=== PATIENT | female | born 1970 | race Caucasian/White ===

== ENCOUNTER 2019-03-12 17:32 | Emergency (ER) | payer OTHER ==
[2019-03-12 17:38] VITALS: RESP 18; TEMP 98.2
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
[2019-03-12 19:05] LABS: Amphetamine Screen,Urine Not Detected (NotDetected); Barbiturate Screen,Urine Not Detected (NotDetected); Benzodiazepines Screen,Urine Not Detected (NotDetected); Cocaine Screen,Urine Not Detected (NotDetected); Methadone Screen, Urine Not Detected (NotDetected); Opiate Screen,Urine Not Detected (NotDetected); Oxycodone Screen, Urine Not Detected (NotDetected); Phencyclidine Screen,Urine Not Detected (NotDetected); Tricyclic Antidepressant,Urine Not Detected (NotDetected); Urn Cannabinoid Scrn Detected (NotDetected)
[2019-03-12 19:52] VITALS: BP 169/71; PULSE 71
== END 2019-03-12 19:59 | disposition home or self-care (01) ==
LOC: EC 17:32
DX: R45.1 Restlessness and agitation (principal); S40.022A Contusion of left upper arm, initial encounter; S80.12XA Contusion of left lower leg, initial encounter; F17.200 Nicotine dependence, unspecified, uncomplicated; Y08.89XA Assault by other specified means, initial encounter
CPT/HCPCS: 80306; 82075; 99284

== ENCOUNTER → 2019-08-22 | Outpatient (CLI) | payer OTHER ==
--- NOTE | 2019-08-22 13:31 | XR ---
Cervical spine HISTORY: Cervical pain 8 views of the cervical spine There is multilevel spondylosis. Loss of normal cervical lordosis could be due to muscle spasm or pat ient positioning. Cervical vertebral bodies show preserved height and bone mineralization. Spondylosi s is present at C5-6 and C6-7, loss of disc height present C6-7, C7-T1. Facet arthropathy changes are present. No evident listhesis on flexion and extension views. No significant foraminal encroachment on oblique views. IMPRESSION: Degenerative disc disease, facet arthropathy.
== END | disposition home or self-care (01) ==
LOC: RADXRMAIN 09:36
PROVIDERS: ATTEND Family Medicine
DX: M50.30 Other cervical disc degeneration, unspecified cervical region (principal); M46.92 Unspecified inflammatory spondylopathy, cervical region
CPT/HCPCS: 72050

== ENCOUNTER → 2020-01-27 | Outpatient (CLI) | payer OTHER ==
--- NOTE | 2020-01-27 13:24 | MR ---
EXAMINATION TYPE: MR cervical spine wo/w con DATE OF EXAM ORDERED: 01/27/2020 10:40 AM HISTORY: [place] Arm Weakness. TECHNOLOGIST HISTORY AT TIME OF EXAM: Bilateral arm weakness, neck pain IV CONTRAST: 10 of Gadavist COMPARISON: None. TECHNIQUE: Multiplanar, multiecho imaging of the cervical spine was obtained with and without the in travenous administration of 10 of Gadavist on a 1.5 jeramy magnet. FINDINGS: Prevertebral soft tissues are normal. Vertebral body height and alignment are maintained. Atlantoaxial relationships are normal. There is a normal craniocervical junction. Cord signal is normal. At C2-C3, there is mild right-sided intervertebral foraminal narrowing. There is a posterior bony bar slightly eccentric towards the right causing intervertebral foraminal narrowing. There is no signifi cant compressive discopathy. The facet and uncovertebral joints are unremarkable. At C3-C4, there is right-sided intervertebral foraminal narrowing. This is due to a combination of hy pertrophic change in the uncovertebral joints and facet arthropathy. There is no significant compress heidy disc, with a. The facet and uncovertebral joints are unremarkable. At C4-C5, intervertebral foramina are clear. There is no significant compressive discopathy. The face t and uncovertebral joints are unremarkable. At C5-C6, there is mild disc space loss. There is mild right-sided intervertebral foraminal narrowing . There is a diffuse disc displacement. The facet and uncovertebral joints are unremarkable. At C6-C7, there is disc space loss. There is hypertrophic spondylosis anteriorly. There is a right pa racentral disc displacement. I believe is largely spares the intervertebral foramina on outside. The facet and uncovertebral joints are unremarkable. At C7-T1, no definite abnormality is seen. IMPRESSION: 1. DIFFUSE DEGENERATIVE DISC DISEASE. 2. MULTILEVEL INTERVERTEBRAL FORAMINAL NARROWING. 3. RIGHT PARACENTRAL DISC DISPLACEMENT, C6-7.
== END | disposition home or self-care (01) ==
LOC: RADMRIMAIN 09:56
PROVIDERS: ATTEND Family Medicine
DX: M50.31 Other cervical disc degeneration, high cervical region (principal); M48.02 Spinal stenosis, cervical region; M50.223 Other cervical disc displacement at C6-C7 level
CPT/HCPCS: 72156; A9585

== ENCOUNTER → 2021-09-04 | Outpatient (CLI) | payer OTHER ==
--- NOTE | 2021-09-04 13:40 | XR ---
Thoracic spine and lumbar spine HISTORY: M 52.9 3 views of the thoracic spine and 3 views the lumbar spine submitted Lumbar spine shows associated spondylosis. Lumbar vertebral bodies show preserved height and bone min eralization. Loss of disc height present L3-4, L4-5. Sclerosis present posterior elements. IMPRESSION: Degenerative disc disease and facet arthropathy Thoracic spine shows mild spinal curvature. Is multilevel spondylosis. Loss of disc height at interve rtebral levels the midthoracic spine level. Thoracic vertebral bodies show preserved height and bone mineralization. IMPRESSION: Degenerative disc disease, mild spinal curvature.
== END | disposition home or self-care (01) ==
LOC: RADXRMAIN 12:54
PROVIDERS: ATTEND Family Medicine
DX: M51.36 Other intervertebral disc degeneration, lumbar region (principal); M47.816 Spondylosis without myelopathy or radiculopathy, lumbar region; M51.34 Other intervertebral disc degeneration, thoracic region; M43.8X4 Other specified deforming dorsopathies, thoracic region
CPT/HCPCS: 72072; 72100